=== PATIENT | male | born 1950 | race Caucasian/White ===

== ENCOUNTER 2020-03-28 13:44 | Day surgery (SDC) | payer MEDICARE ==
[~2020-03-28] VITALS: Ht 177.8 cm; Wt 138.5 kg
[2020-03-28] VITALS (12 sets, daily range): BP systolic 111–149; BP diastolic 42–71
[~2020-03-28 13:44] MED LIST: AMIO200T67 PO; APIX5TAB3 PO; ASPI-611 PO; ATOR40TA71 PO; CARSR60C PO; CHOL100025 PO; FURO-150 PO; LANS30CA56 PO; LEVO50TA8 PO; LISI-600 PO; NOR5T PO; PIOG30TA72 PO
[2020-03-28] MEDS ORDERED: MIDAZolam 1mg/ml 10ml vial IV ONE (14:10)
[2020-03-28] MEDS ORDERED: normal saline 1000ml 1,000 ML IV SCH (14:10)
[2020-03-28] MEDS ORDERED: fentaNYL/PF 50MCG/1 ML 2ML syringe IV ONE (14:10)
[2020-03-28] MEDS ORDERED: METO5TAB7 PO (14:11)
[2020-03-28] MEDS ORDERED: AMIO200T61 PO (14:11)
[2020-03-28] MEDS ORDERED: DAPA10TA PO (14:11)
[2020-03-28] MEDS ORDERED: LISI40TA4 PO (14:11)
[2020-03-28] MEDS ORDERED: POTA20TA19 PO (14:11)
[2020-03-28] MEDS ORDERED: FURO40TA4 PO (14:11)
[2020-03-28] MEDS ORDERED: DILT60TA3 PO (14:11)
[2020-03-28] MEDS ORDERED: APIX5TAB3 PO (14:14)
[2020-03-28] MEDS ORDERED: LUTE1CAP4 PO (14:14)
[2020-03-28] MEDS ORDERED: VITAMIN D PO (14:14)
== END 2020-03-28 18:00 | disposition home or self-care (01) ==
LOC: SSTAY O 13:44
PROVIDERS: ATTEND Internal Medicine Interventional Cardiology
DX: I48.91 Unspecified atrial fibrillation (principal)
CPT/HCPCS: 92960; 94799; J2250; J3010; J7030; 93005